=== PATIENT | male | born 1935 | race Caucasian/White ===

== ENCOUNTER 2016-07-10 11:41 | Emergency (ER) | payer OTHER ==
--- NOTE | ~2016-07-10 | US140 ---
[facility] A Service [facility] RADIOLOGY TEXT RESULTS PATIENT: YARI JALLOH LOCATION: [facility] : 35 UNIT #: [id number] AGE: [address]: Kaylee Tong MD SEX: M ORDER DR: [id number] [id number] [facility]. [place], [place] [address] [id number] MR#: [id number] Acc #: [id number] NAME: YARI JALLOH. : 1935 SEX: M STUDY DATE/TIME: 07/10/2016 12:13 UNIT: [facility] ROOM: STUDY DESCRIPTION: US UE Veins Unilat or Ltd Stdy Attending Physician: Kaylee Tong M.D. Ordering Physician: Kaylee Tong M.D. Primary Care Physician: Ernesto Wesley M.D. MEDICAL IMAGING REPORT This report is preliminary unless electronic signature is present EXAM Color Doppler ultrasound examination of the right upper extremity. DATE OF EXAM 07/10/2016 HISTORY Right upper extremity swelling for the past 3 days. Patient currently taking anticoagulants. TECHNIQUE Ultrasound evaluation was performed with cruz-scale, color-flow and Doppler spectral waveform analysis. FINDINGS The deep veins of the upper extremity are widely patent and easily compressible. There is good augmentation of flow with distal compression. There is a normal Doppler pattern. IMPRESSION Normal examination. Dictated by... Adebayo Giron M.D. THIS IS AN ELECTRONICALLY VERIFIED REPORT Adebayo Giron M.D. at 07/10/2016 4:55 PM MAURICIO/kaia TD: 07/10/2016 15:56 JOB #: [id number] [facility] A Service [facility] RADIOLOGY TEXT RESULTS PATIENT: YARI JALLOH LOCATION: [facility] : 35 UNIT #: [id number] AGE: [address]: Kaylee Tong MD SEX: M ORDER DR: MEDICAL IMAGING REPORT COPY
[~2016-07-10 11:41] MED LIST: ALBUTEROL20 ml INH; ASPIRIN81 M1 PO; ASPIRIN81 M2 PO; CARDIZEM CD PO; CENTRUM SILVER; CERTAGEN PO; CLARITIN-D1 TAB 24 H PO; CLARITIN10 MG PO; COREG6.25 MG PO; DILTIAZEM ER180 M1 PO; GLUCOSAMINE; GLUCOSAMINE PO; GUAIFENESI1 TAB.SR . PO; HYDROCHLOROTH12.5 M1 PO; LISINOPRIL PO; LISINOPRIL20 MG PO; LORATADINE; LORTAB 7.5-5001 TAB PO; MOTION RELIEF25 MG PO; MUCINEX; NAPROXEN PO; NAPROXEN375 M1 PO; NITROSTAT0.4 MG SL; NORVASC PO; PRAVASTATIN SOD40 MG PO; SPIRIVA18 MCG INH; STOOL SOFTENER100 M1 PO; SYMBICORT INH; Z-TUSS AC LIQU473 ML PO; ZITHROMAX PO; ZOCOR PO
[2016-07-10 11:43] LABS: BASOPHIL# 0.1 X10e3 (0-0.3); BASOPHIL% 0.9 % (0-2.5); DIFF IND NO; EOSINOPHIL# 0.3 X10e3 (0-0.7); EOSINOPHIL% 3.4 % (0.0-7.0); HEMATOCRIT 34.7 % (38.0-50.0); HEMOGLOBIN 10.7 gm/dL (13.0-16.0); LYMPHOCYTE# 1.3 X10e3 (1.0-3.5); LYMPHOCYTE% 15.6 % (17.0-45.0); MEAN CELL VOLUME 72.7 FL (83-96); MEAN CORPUSCULAR HEMOGLOBIN 22.4 PG (28-34); MEAN CORPUSCULAR HGB CONC 30.9 g/dL (30-36); MEAN PLATELET VOLUME 7.5 FL (6.5-11.5); MONOCYTE# 0.7 X10e3 (0-1.0); MONOCYTE% 8.9 % (3.0-12.0); NEUTROPHIL# 5.9 X10e3 (1.5-7.1); NEUTROPHIL% 71.2 % (40-75); PLATELET COUNT 222 X10e3 (140-420); RED BLOOD COUNT 4.77 X10e (3.90-5.60); RED CELL DISTRIBUTION WIDTH 16.4 % (11.0-15.5); WHITE BLOOD COUNT 8.3 X10e3 (4.0-10.5)
[2016-07-10 12:09] LABS: BLOOD UREA NITROGEN 20 mg/dL (9-23); BUN/CREATININE RATIO 18.18; CALCIUM SERUM 9.5 mg/dL (8.4-10.2); CARBON DIOXIDE 28 mmol/L (22-31); CHLORIDE 102 mmol/L (100-111); CREATININE SERUM 1.1 mg/dL (0.6-1.4); GLOM FILT RATE Estimated ABOVE60 mL/min (>60); GLUCOSE FASTING 114 mg/dL (70-110); POTASSIUM 4.2 mmol/L (3.5-5.1); SODIUM 139 mmol/L (135-145)
[2016-09-09] MEDS ORDERED: AZELASTINE137 MCG/0. (09:50)
[2016-09-09] MEDS ORDERED: AMLODIPINE-BEN1 EAC1 PO (09:50)
[2016-09-09] MEDS ORDERED: ASPIRIN EC81 M1 PO (09:50)
[2016-09-09] MEDS ORDERED: CLOPIDOGREL75 MG PO (09:51)
[2016-09-09] MEDS ORDERED: SYMBICORT (09:51)
[2016-09-09] MEDS ORDERED: ERGOCAL (09:52)
[2016-09-09] MEDS ORDERED: MUCINEX (09:52)
[2016-09-09] MEDS ORDERED: LANSOPRAZOLE30 M2 PO (09:53)
[2016-09-09] MEDS ORDERED: ISOSORBIDE MONO30 MG PO (09:53)
[2016-09-09] MEDS ORDERED: PRAVASTATIN SOD40 MG PO (09:54)
[2016-09-09] MEDS ORDERED: INCRUSE INHALER (09:54)
== END 2016-07-10 14:57 | disposition home or self-care (01) ==
LOC: CED 11:41
PROVIDERS: Emergency Medicine
DX: L03.113 Cellulitis of right upper limb (principal); E11.9 Type 2 diabetes mellitus without complications; I10 Essential (primary) hypertension; Z79.899 Other long term (current) drug therapy
CPT/HCPCS: 36415; 80048; 85025; 93971; 99284; J0690

== ENCOUNTER → 2016-09-09 | Day surgery (SDC) | payer OTHER ==
[~2016-09-09] MED LIST changes: +AMLODIPINE-BEN1 EAC1 PO; +ASPIRIN EC81 M1 PO; +AZELASTINE137 MCG/0.; +CLOPIDOGREL75 MG PO; +ERGOCAL; +INCRUSE INHALER; +ISOSORBIDE MONO30 MG PO; +LANSOPRAZOLE30 M2 PO; +SYMBICORT
== END | disposition home or self-care (01) ==
LOC: COPS 08:14
DX: Z12.11 Encounter for screening for malignant neoplasm of colon (principal); E11.9 Type 2 diabetes mellitus without complications; Z53.8 Procedure and treatment not carried out for other reasons
CPT/HCPCS: 82947

== ENCOUNTER → 2016-10-14 | Day surgery (SDC) | payer OTHER ==
--- NOTE | ~2016-10-14 | OR ---
Unit #: [id number] #: [id number] Patient: YARI JALLOH [id number] [place], [place] [address] [id number] MR#: [id number] NAME: YARI JALLOH. ROOM: Date of Procedure: 10/14/2016 Admission Date: 10/14/2016 Surgeon: Mian Westfall M.D. : 1935 Attending Physician: Mian Westfall M.D. Referring Physician: Mian Westfall M.D. Primary Care Physician: Ernesto Wesley M.D. OPERATIVE REPORT PROCEDURES PERFORMED Esophagogastroduodenoscopy with argon plasma coagulation and colonoscopy with argon plasma coagulation, colonoscopy with multiple snare polypectomies. INDICATIONS FOR PROCEDURE An 80-year-old gentleman with iron-deficiency anemia, undergoing evaluation with upper endoscopy and colonoscopy. MEDICATIONS Monitored anesthesia. POSTOPERATIVE FINDINGS 1. Normal esophagus. 2. 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 3. Normal duodenum and distal duodenum. 4. 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 5. Multiple polyps, 1 in cecum, 4 in transverse and 3 in descending colon, varying in size from 4 to 8 mm. They were all snared and sent for histopathology. 6. Internal hemorrhoids. PLAN Follow up on the pathology report. Continue watch H and H. DESCRIPTION OF PROCEDURE The patient was explained of the procedure, risks, and benefits along with the risks and benefits of anesthesia. He was brought to the endoscopy room. Propofol anesthesia was given. Bite block was placed. The scope was passed down the mouth into the esophagus, stomach, duodenum, and distal duodenum. Findings as described. APC was carried out successfully in the stomach. Gently, the scope was pulled out. He tolerated it well. At this time, he was turned around and repositioned for colonoscopy. Rectal exam was done, which was normal. Colonoscope was lubricated, passed up the rectum, advanced under direct vision all the way to the cecum. Cecum was identified by ileocecal valve and appendiceal orifice. I then started to pull the scope out. Multiple AVMs and polyps were removed as described. I retroflexed in the rectum, small hemorrhoids seen. Scope was gently pulled out. He tolerated it well. Unit #: [id number] #: [id number] Patient: YARI JALLOH Dictated by... Sammie Ryan/simon TD: 10/14/2016 22:26 JOB #: [id number] OPERATIVE REPORT Page 1 of 1 X Mian Westfall MD X PROCEDURE OPERATIVE NOTE
== END | disposition home or self-care (01) ==
LOC: COPS 10:29
DX: D12.3 Benign neoplasm of transverse colon (principal); D12.4 Benign neoplasm of descending colon; D12.5 Benign neoplasm of sigmoid colon; K63.5 Polyp of colon; K31.819 Angiodysplasia of stomach and duodenum without bleeding; K55.20 Angiodysplasia of colon without hemorrhage; K64.8 Other hemorrhoids; D50.9 Iron deficiency anemia, unspecified; E11.9 Type 2 diabetes mellitus without complications; I25.10 Atherosclerotic heart disease of native coronary artery without angina pectoris; J43.9 Emphysema, unspecified; K21.9 Gastro-esophageal reflux disease without esophagitis; Z87.01 Personal history of pneumonia (recurrent); Z86.010 Personal history of colon polyps; Z87.891 Personal history of nicotine dependence; Z79.82 Long term (current) use of aspirin; Z79.899 Other long term (current) drug therapy; Z79.51 Long term (current) use of inhaled steroids; Z79.01 Long term (current) use of anticoagulants; Z95.5 Presence of coronary angioplasty implant and graft; Z98.49 Cataract extraction status, unspecified eye; Z98.890 Other specified postprocedural states
CPT/HCPCS: 82947; 88305